=== PATIENT | female | born 2000 | race African-American/Black ===

== ENCOUNTER 2022-12-17 23:27 | Emergency (ER) | payer MEDICAID ==
[~2022-12-17] VITALS: Ht 158.8 cm; Wt 62.0 kg
[2022-12-18 00:10] VITALS: BP 114/77; PULSE 66; RESP 19; TEMP 98; O2SAT 99
[2022-12-18 00:32] LABS: CLARITY URINE CLEAR (CLEAR); COLOR URINE YELLOW (YELLOW); KETONES URINE NEGATIVE (NEGATIVE); LEUKOCYTE ESTERASE URINE NEGATIVE (NEGATIVE); NITRITE URINE NEGATIVE (NEGATIVE); OCCULT BLOOD URINE NEGATIVE (NEGATIVE); PH URINE 5.5 (4.5-8.0); PROTEIN URINE NEGATIVE (NEGATIVE); SPECIFIC GRAVITY URINE 1.026 (1.005-1.030)
== END 2022-12-18 04:22 | disposition left against medical advice (07) ==
LOC: ER 23:27
DX: Z53.21 Procedure and treatment not carried out due to patient leaving prior to being seen by health care provider (principal)
CPT/HCPCS: 81003; 81025; 99281

== ENCOUNTER 2023-11-16 23:15 | Emergency (ER) | payer SELFPAY ==
[~2023-11-16] VITALS: Ht 162.6 cm; Wt 63.0 kg
[2023-11-16 23:19] VITALS: O2SAT 99
[2023-11-17] MEDS ORDERED: FEXO-270 MT (00:48)
[2023-11-17] MEDS ORDERED: ALBU6.7H15 INH (00:48)
[2023-11-17] MEDS ORDERED: ALBU05 NEB (00:48)
[2023-11-17 03:00] VITALS: BP 121/69; PULSE 74; RESP 20; TEMP 98.9
== END 2023-11-17 03:00 | disposition home or self-care (01) ==
LOC: ER 23:31
DX: U07.1 COVID-19 (principal); J45.909 Unspecified asthma, uncomplicated; Z88.8 Allergy status to other drugs, medicaments and biological substances
CPT/HCPCS: 71045; 81025; 87420; 87426; 87804; 99284

== ENCOUNTER 2024-06-16 20:13 | Emergency (ER) | payer OTHER ==
[~2024-06-16] VITALS: Ht 165.1 cm; Wt 59.0 kg
[~2024-06-16 20:13] MED LIST: ALBU05 NEB; ALBU6.7H15 INH; FEXO-270 MT
[2024-06-16 20:20] VITALS: O2SAT 100
[2024-06-16 23:58] LABS: BASOPHILS % 0.5 % (0.0-2.0); EOSINOPHILS % 0.2 % (0.0-5.0); HEMATOCRIT. 40.3 % (36.0-48.0); HEMOGLOBIN. 13.1 g/dL (12.0-16.0); LYMPHOCYTES % 28.1 % (20.0-50.0); MEAN CORPUSCULAR HEMOGLOBIN 27.8 pg (28.0-32.0); MEAN CORPUSCULAR HGB CONC 32.6 g/dL (31.0-37.0); MEAN CORPUSCULAR VOLUME 85.4 fL (81.0-99.0); MEAN PLATELET VOLUME 8.4 fl (7.4-10.4); MONOCYTES % 8.1 % (2.0-8.0); NEUTROPHILS % 63.1 % (40.0-76.0); PLATELET 307 x1000/uL (130-400); RED BLOOD CELL COUNT 4.72 mill/uL (4.2-5.4); RED CELL DISTRIBUTION WIDTH 13.6 % (11.6-14.6)
[2024-06-17 00:08] LABS: CARBON DIOXIDE 24 mEq/L (21-32); CHLORIDE 103 mEq/L (98-107); SODIUM 136 mEq/L (136-145)
[2024-06-17 00:09] LABS: CALCIUM 10.3 mg/dL (8.7-10.4)
[2024-06-17 00:14] LABS: CREATININE 0.9 mg/dL (0.6-1.0); GLUCOSE 83 mg/dL (70-105); UREA NITROGEN BLOOD 9 mg/dL (9-23)
[2024-06-17 00:15] LABS: ALANINE AMINOTRANSFERASE 10 IU/L (10-49); ALBUMIN 5.1 g/dL (3.2-4.8); ASPARTATE AMINOTRANSFERASE 17 IU/L (<34)
[2024-06-17 00:16] LABS: BILIRUBIN DIRECT 0.3 mg/dL (<=3.0); BILIRUBIN TOTAL 0.9 mg/dL (0.1-1.0); PROTEIN TOTAL 7.9 g/dL (6.0-8.3)
[2024-06-17 00:28] LABS: B-HCG QUANTITATIVE 54425 mIU/mL (<3)
[2024-06-17] MEDS: KETOROLAC 30MG/ML VIAL IM ONE (04:18)
[2024-06-17] MEDS: ONDANSETRON HCL 4MG/2ML INJ IM ONE (04:18)
[2024-06-17] MEDS ORDERED: IBUP-2029 MT (04:36)
[2024-06-17] MEDS ORDERED: ONDA4TAB50 MT (04:36)
[2024-06-17 04:49] VITALS: BP 113/72; PULSE 83; RESP 18; TEMP 36.78072; O2SAT 100
[2024-06-17 04:50] LABS: CLARITY URINE CLEAR (CLEAR); COLOR URINE DARK YELLOW (YELLOW); GLUCOSE URINE NEGATIVE (NEGATIVE); KETONES URINE 3+ (NEGATIVE); LEUKOCYTE ESTERASE URINE NEGATIVE (NEGATIVE); NITRITE URINE NEGATIVE (NEGATIVE); OCCULT BLOOD URINE NEGATIVE (NEGATIVE); PH URINE 5.5 (4.5-8.0); PROTEIN URINE 1+ (NEGATIVE); SPECIFIC GRAVITY URINE 1.032 (1.005-1.030)
[2024-06-17 05:08] LABS: MUCUS URINE 2+ /lpf (< = 2+); SQUAMOUS EPITHELIAL CELL URINE FEW /lpf (RARE/1+)
[2024-06-17 05:09] LABS: BACTERIA URINE TRACE; RBC URINE 0-2 /hpf (0-2); WBC URINE 0-2 /hpf (0-2)
== END 2024-06-17 04:51 | disposition home or self-care (01) ==
LOC: ER 20:24
DX: R10.30 Lower abdominal pain, unspecified (principal); E86.0 Dehydration; J45.909 Unspecified asthma, uncomplicated; Z88.0 Allergy status to penicillin
CPT/HCPCS: 99284; 80076; 80048; 84702; 83690; 85025; 36415; 81003; 96372; J1885; J2405

== ENCOUNTER 2024-09-14 23:50 | Emergency (ER) | payer OTHER ==
[~2024-09-14] VITALS: Ht 157.5 cm; Wt 58.0 kg
[~2024-09-14 23:50] MED LIST changes: +IBUP-2029 MT; +ONDA4TAB50 MT
[2024-09-15 00:12] VITALS: O2SAT 98
[2024-09-15 00:19] VITALS: BP 114/66; PULSE 72; RESP 18; TEMP 37.1; O2SAT 98
[2024-09-15] MEDS ORDERED: TOPUD MT (00:52)
[2024-09-15] MEDS ORDERED: PREN-28 MT (00:52)
== END 2024-09-15 01:23 | disposition home or self-care (01) ==
LOC: ER 23:50
DX: O26.891 Other specified pregnancy related conditions, first trimester (principal); M25.561 Pain in right knee; Z3A.01 Less than 8 weeks gestation of pregnancy
CPT/HCPCS: 99282

== ENCOUNTER 2024-09-17 19:34 | Emergency (ER) | payer OTHER ==
[~2024-09-17] VITALS: Ht 157.5 cm; Wt 58.0 kg
[~2024-09-17 19:34] MED LIST changes: -IBUP-2029 MT; +PREN-28 MT; +TOPUD MT
[2024-09-17 19:42] VITALS: O2SAT 100
[2024-09-17 19:49] VITALS: BP 137/97; PULSE 80; RESP 17; TEMP 36.7; O2SAT 100
[2024-09-17 20:33] LABS: BASOPHILS % 0.5 % (0.0-2.0); EOSINOPHILS % 0.4 % (0.0-5.0); HEMATOCRIT. 36.6 % (36.0-48.0); HEMOGLOBIN. 12.1 g/dL (12.0-16.0); LYMPHOCYTES % 33.1 % (20.0-50.0); MEAN CORPUSCULAR HEMOGLOBIN 27.5 pg (28.0-32.0); MEAN CORPUSCULAR VOLUME 83.5 fL (81.0-99.0); MEAN PLATELET VOLUME 8.8 fl (7.4-10.4); MONOCYTES % 7.5 % (2.0-8.0); NEUTROPHILS % 58.5 % (40.0-76.0); PLATELET 279 x1000/uL (130-400); RED BLOOD CELL COUNT 4.38 mill/uL (4.2-5.4); WHITE BLOOD COUNT 5.6 x1000/uL (4.5-11.0)
[2024-09-17 20:40] LABS: CHLORIDE 106 mEq/L (98-107); POTASSIUM 3.9 mEq/L (3.5-5.1); SODIUM 139 mEq/L (136-145)
[2024-09-17 20:41] LABS: CARBON DIOXIDE 25 mEq/L (21-32)
[2024-09-17 20:42] LABS: CALCIUM 9.1 mg/dL (8.7-10.4)
[2024-09-17 20:46] LABS: CREATININE 0.9 mg/dL (0.6-1.0); GLUCOSE 86 mg/dL (70-105); PROTHROMBIN TIME 10.8 sec (9.6-11.0)
[2024-09-17 20:47] LABS: B-HCG QUANTITATIVE 96 mIU/mL (<6); UREA NITROGEN BLOOD 12 mg/dL (9-23)
[2024-09-17 22:12] LABS: GLUCOSE URINE NEGATIVE (NEGATIVE); KETONES URINE NEGATIVE (NEGATIVE)
[2024-09-17 22:20] LABS: CLARITY URINE CLEAR (CLEAR); COLOR URINE YELLOW (YELLOW); LEUKOCYTE ESTERASE URINE NEGATIVE (NEGATIVE); NITRITE URINE NEGATIVE (NEGATIVE); OCCULT BLOOD URINE 3+ (NEGATIVE); PH URINE 6.5 (4.5-8.0); PROTEIN URINE NEGATIVE (NEGATIVE); SPECIFIC GRAVITY URINE 1.025 (1.005-1.030)
[2024-09-17 22:26] LABS: WBC URINE NONE SEEN /hpf (0-2)
[2024-09-17 22:27] LABS: BACTERIA URINE NONE SEEN; SQUAMOUS EPITHELIAL CELL URINE FEW /lpf (RARE/1+)
== END 2024-09-17 22:05 | disposition home or self-care (01) ==
LOC: ER 19:34
DX: O20.0 Threatened abortion (principal); O99.511 Diseases of the respiratory system complicating pregnancy, first trimester; J45.909 Unspecified asthma, uncomplicated; Z3A.01 Less than 8 weeks gestation of pregnancy; Z88.0 Allergy status to penicillin
CPT/HCPCS: 36415; 76801; 80048; 81003; 84702; 85025; 86850; 86900; 99284